=== PATIENT | male | born 1970 | race Caucasian/White ===

== ENCOUNTER → 2018-10-06 | Outpatient (CLI) | payer OTHER ==
--- NOTE | 2018-10-06 09:46 | US ---
EXAMINATION TYPE: US carotid duplex BILAT DATE OF EXAM: 10/06/2018 COMPARISON: NONE CLINICAL HISTORY: I63.9 Cerebral infarction. EXAM MEASUREMENTS: RIGHT: Peak Systolic Velocity (PSV) cm/sec ----- Right CCA: 91.9 ----- Right ICA: 112.1 ----- Right ECA: 79.9 ICA/CCA ratio: 1.2 RIGHT: End Diastole cm/sec ----- Right CCA: 27.0 ----- Right ICA: 30.5 ----- Right ECA: 17.1 LEFT: Peak Systolic Velocity (PSV) cm/sec ----- Left CCA: 111.9 ----- Left ICA: 101.8 ----- Left ECA: 143.1 ICA/CCA ratio: 0.9 LEFT: End Diastole cm/sec ----- Left CCA: 29.9 ----- Left ICA: 34.7 ----- Left ECA: 23.6 VERTEBRALS (direction of flow): Right Vertebral: Antegrade Left Vertebral: Antegrade Rhythm: Normal No significant stenosis seen IMPRESSION: No sonographically evident hemodynamically significant stenosis within either visualized carotid arterial system. Criteria for Assigning % of Stenosis / Diameter reduction (Estimation based on the indirect measurements of the internal carotid artery velocities (ICA PSV). 1. Normal (no stenosis)=ICA PSV < 125 cm/s: ratio < 2.0: ICA EDV<40 cm/s. 2. Less than 50% stenosis=ICA PSV < 125 cm/s: ratio < 2.0: ICA EDV<40 cm/s. 3. 50 to 69% stenosis=ICA PSV of 125 to 230 cm/s: ration 2.0 ? 4.0: ICA EDV 40-100 cm/s. 4. Greater than 70% stenosis to near occlusion= ICA PSV > 230 cm/s: ratio > 4.0: ICA EDV > 100 cm/s. 5. Near occlusion= ICA PSV velocities may be low or undetectable: variable ratio and ICA EDV. 6. Total occlusion=unable to detect flow.
== END | disposition home or self-care (01) ==
LOC: RADUSWWP 08:44
DX: I63.9 Cerebral infarction, unspecified (principal)
CPT/HCPCS: 93880

== ENCOUNTER → 2018-10-17 | Outpatient (CLI) | payer OTHER ==
--- NOTE | 2018-10-24 11:27 | MR ---
EXAMINATION TYPE: MR brain wo/w con DATE OF EXAM: 10/17/2018 COMPARISON: 10/31/2017 outside MRI of the brain without contrast. HISTORY: Abnormal findings TECHNIQUE: Multiplanar, multisequence images of the brain and brainstem is performed without and with IV contras t, utilizing 8.5 mL intravenous Gadavist . FINDINGS: There is redemonstration of periventricular and subcortical FLAIR hyperintensity seen in the posterio r and medial left frontal lobe measuring up to 1.1 cm in AP dimension, which is not significantly colin nged when compared to 10/31/2017. No evidence of enhancement on the postcontrast imaging. Diffusion weighted images demonstrate no evidence of a recent infarct or other diffusion abnormality. There is no extra-axial fluid collection. The ventricular system and cisternal spaces are normal in size and appearance. The brain volume is age appropriate. Midline structures demonstrate normal morphology. The craniocervical junction appears within normal limits. Post contrast images demonstrate no abnormal enhancement. The dural venous sinuses appear pa tent. There is a mucosal polyp or retention cyst seen in the inferior right maxillary sinus. Mucosal thickening and partial opacification of the visualized paranasal sinuses. Mastoid air cells are clear . The globes are intact. IMPRESSION: Stable size and appearance of left frontal periventricular and subcortical white matter lesion withou t evidence of diffusion restriction or enhancement. These findings appear stable when compared to 10/13. Given the patient's age, differential for these findings include demyelinating plaque, early chronic microvascular ischemic change, vasculitis, Lyme disease, chronic migraine or other etiologies . If symptoms persist, correlation with patient history and neurology consult is recommended.
== END | disposition home or self-care (01) ==
LOC: RADMRIMAIN 11:53
DX: I67.82 Cerebral ischemia (principal); R90.89 Other abnormal findings on diagnostic imaging of central nervous system; G37.8 Other specified demyelinating diseases of central nervous system; Z91.018 Allergy to other foods
CPT/HCPCS: 70553; A9585

== ENCOUNTER → 2019-05-13 | Outpatient (CLI) | payer OTHER ==
--- NOTE | 2019-05-13 19:32 | MR ---
EXAMINATION TYPE: MR tspine/lspine wo con DATE OF EXAM: 05/13/2019 COMPARISON: None HISTORY: Low back pain CONTRAST: Performed utilizing 0 mL intravenous Gadavist gadolinium contrast. TECHNIQUE: Multiplanar, multiecho imaging on a 3.0 Stella magnet is performed through the thoracic spi ne. Spinal cord maintains normal signal through its visualized course. Vertebral body alignment is normal. Vertebral body heights are preserved. Disc heights are preserved. Disc hydration levels are preserved. No spinal canal stenosis is evident. IMPRESSIONS: 1. Normal MRI thoracic spine. EXAMINATION TYPE: MR tspine/susanpine wo con DATE OF EXAM: 05/13/2019 COMPARISON: None HISTORY: Low back pain CONTRAST: 0 mL intravenous Gadavist. TECHNIQUE: Multiplanar, multisequence images of the lumbar spine were acquired. FINDINGS: L5-S1: No significant disc bulge or disc herniation. No spinal canal stenosis. No foraminal stenosi s. Facet hypertrophy is present. No significant posterior lateral thecal sac compression is evident. . L4-L5: There is mild broad-based disc radiation and left paracentral canal at L4-5. This may be displ acing the exiting left L5 nerve root. Correlate with left L5 radicular symptoms. Obvious compression is not identified. No spinal canal stenosis. No foraminal stenosis. . L3-L4: No significant disc bulge or disc herniation. No spinal canal stenosis. No foraminal stenosi s. . L2-L3: No significant disc bulge or disc herniation. No spinal canal stenosis. No foraminal stenosi s. . L1-L2: No significant disc bulge or disc herniation. No spinal canal stenosis. No foraminal stenosi s. . T12-L1: No significant disc bulge or disc herniation. No spinal canal stenosis. No foraminal stenos is. . IMPRESSION: 1. Left paracentral disc herniation with mild epidural space impression. This may displace the exitin g left L5 nerve root. Correlate with radicular symptoms.
== END | disposition home or self-care (01) ==
LOC: RADMRIMAIN 13:31
PROVIDERS: ATTEND Physician Assistant
DX: M51.26 Other intervertebral disc displacement, lumbar region (principal); Z91.018 Allergy to other foods
CPT/HCPCS: 72146; 72148

== ENCOUNTER → 2024-05-22 | Outpatient (CLI) | payer OTHER ==
[2024-05-22 15:06] LABS: HCT 41.3 % (39.6-50.0); HGB 12.8 g/dL (13.0-17.0); MCV 80.7 FL (80.0-97.0); Mean Platelet Volume 12.2 FL (9.5-12.2); NRBC Per 100 WBC 0 X 10*3/uL (0.00-0.01); Platelet Count 222 X 10*3/uL (140-440); RBC 5.12 X 10*6/uL (4.40-5.60); RDW 15.8 % (11.5-14.5); WBC 7.03 X 10*3/uL (4.50-10.00)
[2024-05-22 15:44] LABS: Blood Urea Nitrogen 14.8 mg/dL (9.0-27.0); Carbon Dioxide 22.6 mmol/L (21.6-31.8); Chloride 105 mmol/L (96-109); Potassium 4.5 mmol/L (3.5-5.5); Sodium 141 mmol/L (135-145)
== END | disposition home or self-care (01) ==
LOC: LABPAT 07:57
PROVIDERS: ATTEND Internal Medicine
DX: Z01.812 Encounter for preprocedural laboratory examination (principal); R94.39 Abnormal result of other cardiovascular function study
CPT/HCPCS: 80051; 82565; 84520; 85027

== ENCOUNTER 2024-05-31 09:26 | Day surgery (SDC) | payer OTHER ==
[2024-05-29 14:48] VITALS: BMI 36.9
[~2024-05-31 09:26] MED LIST: ALPRAZolam 0.25 MG TAB PO PRN; ALPRAZolam 0.5 MG TAB PO PRN; NITROGLYCERIN SL TABS 0.4 MG TAB SUBLINGUAL PRN
[2024-05-31] MEDS: SODIUM CHLORIDE 0.9% 1,000 ML in EMPTY BAG 1 BAG IV SCH (10:12)
[2024-05-31 10:13] VITALS: RESP 16; TEMP 97.7
[2024-05-31] MEDS: HEPARIN SODIUM,PORCINE 10,000 UNIT in SODIUM CHLORIDE 0.9% 1,000 ML IRRIGATION PRN (10:26)
[2024-05-31] MEDS: IV FLUID CONTINUATION 1,000 ML IV ONE (10:26)
[2024-05-31] MEDS: HEPARIN SODIUM,PORCINE (1 ML) 2,500 UNIT in SODIUM CHLORIDE 0.9% 250 ML IRRIGATION PRN (10:27)
[2024-05-31] MEDS: MIDAZOLAM 2 MG/2 ML VIAL IVP ONE (10:33)
[2024-05-31] MEDS: fentaNYL (PF) 50 MCG/ML 2 ML AMP IVP ONE (10:33)
[2024-05-31] MEDS: LIDOCAINE 1% INJ 10MG/ML (20 ML MDV) SQ ONE (10:34)
[2024-05-31] MEDS: VERAPAMIL SYRINGE (5 MG/10 ML) INTRAARTER ONE (10:36)
[2024-05-31] MEDS: HEPARIN SODIUM 1,000 UN/ML (10ML VL) IV ONE (10:40)
[2024-05-31] MEDS: IOPAMIDOL-370 100ML BTL INJ ONE (10:46)
[2024-05-31] MEDS ORDERED: RX INFO: IV CONTRAST WAS GIVEN 1 EACH MISC MISCELLANE PRN (10:54)
--- NOTE | 2024-05-31 10:54 | P.CARDCATH ---
Description of Procedure: PROCEDURES PERFORMED: Left heart catheterization, bilateral coronary angiography, ultrasound guided arterial access INDICATION: Abnormal stress test CONSENT:The risks, benefits and alternative therapies for the above-mentioned procedure and for both sedation/analgesia as well as necessary blood product administration, if indicated, as they pertain to this patient were discussed with the patient. The patient has indicated understanding and acceptance of the risks and procedures discussed. PROCEDURE: After the risks, benefits and alternatives of the above mentioned procedure explained in detail with the patient, informed consent was obtained. Patient was taken to the catheterization lab and prepped and draped in usual fashion. Ultrasound guidance was used to assess for arterial access. 1% lidocaine was used to anesthetize the right radial artery. A 6-Portuguese sheath was placed in the right radial artery using modified Seldinger technique and ultrasound guidance. Left coronary angiography was performed with a 5-Portuguese JL 3.5 catheter and right coronary angiography was performed with a 5-Portuguese FR5 catheter in various views. A 5-Portuguese FR5 catheter was inserted into the left ventricle and pressure measurements were obtained. The right radial sheath was removed and a TR band was placed with hemostasis achieved. The patient tolerated the procedure well. Patient was transported back to the post catheterization holding area in stable condition. Conscious Sedation: Patient was monitored under the direct supervision of myself for conscious sedation using Versed and fentanyl for a total duration of 11 minutes HEMODYNAMICS: Aorta: 141/72 LV: 131/5, LVDP 9 SELECTIVE CORONARY ARTERIOGRAPHY: LEFT MAIN: The left main is a large caliber vessel which trifurcates into the LAD, ramus and circumflex. There is no significant stenosis. LEFT ANTERIOR DESCENDING CORONARY ARTERY: LAD is a large caliber vessel which wraps around to the apex. There are mild luminal irregularities with 10-20% stenosis RAMUS INTERMEDIUS: The ramus is a moderate caliber vessel without significant stenosis LEFT CIRCUMFLEX CORONARY ARTERY: Left circumflex is a moderate caliber vessel with mild luminal irregularities. RIGHT CORONARY ARTERY: The right coronary artery is a large caliber vessel which gives off a PDA and PLV branch and is the dominant vessel. There is proximal RCA 20-30% and mid RCA 30-40% stenosis FINAL IMPRESSION: 1. CAD as described above including LAD 10-20%, RCA 30-40% stenosis. 2. Normal left sided filling pressures PLAN: 1. Aggressive risk factor modification per most recent ACC/AHA guidelines. 2. Follow-up in the office in 1-2 weeks.
[2024-05-31] MEDS: SODIUM CHLORIDE 0.9% 1,000 ML IV SCH (11:00)
[2024-05-31 13:50] VITALS: BP 129/67; PULSE 93
[2024-05-31] MEDS: ATORVASTATIN 80 MG TAB PO STA (13:50)
[2024-05-31] MEDS: ASPIRIN 325 MG TAB PO STA (13:50)
== END 2024-05-31 14:19 | disposition home or self-care (01) ==
LOC: CATHCVL 09:26
PROVIDERS: ATTEND Internal Medicine
DX: R94.39 Abnormal result of other cardiovascular function study (principal); I25.10 Atherosclerotic heart disease of native coronary artery without angina pectoris; I10 Essential (primary) hypertension; E78.5 Hyperlipidemia, unspecified; R73.03 Prediabetes; F17.210 Nicotine dependence, cigarettes, uncomplicated; I45.10 Unspecified right bundle-branch block; R00.0 Tachycardia, unspecified
CPT/HCPCS: 93458; C1769 ×2; C1894; J2250; J1644 ×3; J2003; J3010; Q9967